=== PATIENT | female | born 1990 | race Two or more races ===

== ENCOUNTER 2024-10-16 01:52 | Emergency (ER) | payer MEDICAID, OTHER ==
[~2024-10-16] VITALS: Ht 157.5 cm; Wt 54.4 kg
[2024-10-16 02:40] LABS: PLATELET COUNT (AUTO) 405 K/uL (150-450); RED BLOOD CELL COUNT(AUTO) 4.15 MIL/uL (4.0-5.2); RED CELL DISTRIBUTION WIDTH 13.7 % (11.5-15.0); WHITE BLOOD COUNT (AUTO) 12.7 K/uL (4.3-11.0)
[2024-10-16 02:52] LABS: CALCIUM, SERUM 9.0 mg/dL (8.5-10.1); CREATININE 0.8 mg/dL (0.6-1.3); SODIUM SERUM 141 mmol/L (136-145); UREA NITROGEN, BLOOD 11 mg/dL (7-18)
[2024-10-16 02:58] LABS: ALCOHOL, BLOOD < 3 mg/dL (0-10); ASPARTATE AMINOTRANSFERASE 17 U/L (15-37); TOTAL PROTEIN, SERUM 7.3 g/dL (6.4-8.2)
[2024-10-16 03:50] LABS: APPEARANCE,URINE CLEAR (CLEAR); BLOOD, URINE NEGATIVE Ery/uL (NEGATIVE); LEUKOCYTE ESTERASE ,URINE NEGATIVE (NEGATIVE); NITRITE, URINE NEGATIVE (NEGATIVE); UGLUCOSE NEGATIVE (NEGATIVE)
[2024-10-16 03:59] LABS: PREGNANCY TEST URINE QUAL NEGATIVE (NEGATIVE)
[2024-10-16 04:02] LABS: ADD URINE CULTURE NO; SQUAMOUS EPITHELIAL CELL,UR Few /HPF (None Seen)
[2024-10-16 04:22] LABS: BARBITURATE, URINE NEGATIVE (NEGATIVE); BENZODIAZEPINE, URINE NEGATIVE (NEGATIVE); OPIATE, URINE NEGATIVE (NEGATIVE)
[2024-10-16 04:30] LABS: AMPHETAMINE, URINE POSITIVE (NEGATIVE); CANNABINOID, URINE POSITIVE (NEGATIVE); COCCAINE, URINE POSITIVE (NEGATIVE)
[2024-10-16 07:20] VITALS: TEMP 98
[2024-10-16] MEDS ORDERED: ALPRAZOLAM 0.25 MG TABLET ONE (10:44)
[2024-10-16] MEDS: ALPRAZOLAM 0.25 MG TABLET PO ONE (10:50)
[2024-10-16 11:15] VITALS: BP 116/74; O2SAT 98
== END 2024-10-16 12:00 ==
LOC: ER 01:53
DX: F19.10 Other psychoactive substance abuse, uncomplicated (principal); I10 Essential (primary) hypertension; Z20.822 Contact with and (suspected) exposure to COVID-19; Z79.899 Other long term (current) drug therapy; R51.9 Headache, unspecified
CPT/HCPCS: 36415; 70450-TC; 80048-TC; 80076-TC; 81001; 84703-TC; 85025-TC; G0480